=== PATIENT | female | born 1970 | race Caucasian/White ===

== ENCOUNTER → 2024-01-19 | Outpatient (CLI) | payer BC, MEDICAID ==
[~2024-01-19] VITALS: Ht 151.1 cm; Wt 99.8 kg
[2024-01-19] MEDS: albuterol 2.5 MG/3 ML nebule NEB ONE (16:22)
[2024-01-19 16:23] VITALS: PULSE 75; RESP 16; O2SAT 98
== END | disposition home or self-care (01) ==
LOC: RT 15:51
PROVIDERS: ATTEND Nurse Practitioner Family
DX: J98.4 Other disorders of lung (principal); J45.998 Other asthma
CPT/HCPCS: 94060; 94760